=== PATIENT | female | born 1995 | race Caucasian/White ===

== ENCOUNTER 2024-02-24 06:39 | Inpatient (IN) | payer OTHER ==
[2024-02-24] VITALS (42 sets, daily range): BP systolic 119–139; BP diastolic 57–80; PULSE 50–81; TEMP 98.1–98.8
[~2024-02-24] VITALS: Wt 81.4 kg
[~2024-02-24 06:39] MED LIST: LR & Oxytocin 500 ML IV SCH; LR 1,000 ML IV SCH; PRENATAL; TYLENOL 325MG325 MG PO; ceFAZolin 2 G in Water For Injection,Sterile 20 ML IV ONE
[2024-02-24 07:59] LABS: BASO % 0.3 % (0.0-2.0); EOS # 0.1 K/mm3 (0.0-0.7); EOS % 1.9 % (0.0-4.0); GRAN # 4.9 K/mm3 (1.4-6.5); GRAN % 72.6 % (42.2-75.2); HEMOGLOBIN 11.6 g/dl (12.5-16.0); LYMPH # 1.1 K/mm3 (1.2-3.4); LYMPH % 15.8 % (20.0-51.0); MEAN CELL VOLUME 90 fl (80.0-100.0); MEAN CORPUSCULAR HEMOGLOBIN 30 pg (27-31); MEAN CORPUSCULAR HGB CONC 34 g/dl (33.0-37.0); MEAN PLATELET VOLUME 10.8 fl (7.4-10.4); MONO # 0.6 K/mm3 (0.1-0.6); MONO % 8.7 % (1.7-9.3); PLATELET COUNT 160 K/mm3 (130-400); RED BLOOD COUNT 3.81 M/mm3 (4.10-5.30); REDCELL DISTRIBUTION WIDTH-CV 13.7 % (11.5-14.5)
[2024-02-24 08:06] LABS: HEMATOCRIT 34.2 % (37.0-47.0)
--- NOTE | 2024-02-24 08:28 | NUR ---
0700 PT AMBULATES ONTO THE UNIT WITH SPOUSE FOR SCHEDULED INDUCTION OF LABOR.PT DENIES LOF AND VB.PT REPORTS POSITIVE MOVEMENT AND IRREGULAR CONTRACTIONS. POC REVIEWED WITH PT.EFM AND TOCO APPLIED AND TRACING CATEGORY 1.CONSENTS REVIEWED AND SIGNED BY PT.PT AND SPOUSE VERBALIZE UNDERSTANDING.
[2024-02-24] MEDS ORDERED: diphenhydrAMINE 50 MG/ML 1 ML VIAL IV PRN (09:00)
[2024-02-24] MEDS ORDERED: Ondansetron 4 MG/2 ML VIAL IV PRN (09:00)
[2024-02-24] MEDS ORDERED: diphenhydrAMINE 25 MG CAP PO PRN (09:00)
[2024-02-24] MEDS ORDERED: ePHEDrine 50 MG/10 ML VIAL IV PRN (09:00)
[2024-02-24] MEDS ORDERED: Naloxone 0.4 MG/ML VIAL IV PRN ×2 (09:00→16:30)
--- NOTE | 2024-02-24 09:32 | NUR ---
AT THIS TIME BIRTHING PLAN SUPPLIED BY PT REVIEWED BY THIS RN AT BEDSIDE.
--- NOTE | 2024-02-24 12:53 | NUR ---
DR BHATTI AT BEDSIDE.SVE /3. 6 AROM PERFORMED WITH CLEAR FLUID RETURN.PT TOLERATED PROCEDURE WELL.
[2024-02-24] MEDS ORDERED: ceFAZolin 1 G in Water For Injection,Sterile 10 ML IV SCH (14:15)
--- NOTE | 2024-02-24 14:17 | NUR ---
1355 VARIABLES NOTED ON STRIP INTO THE 90'S.THIS RN BEDSIDE FOR SVE.PT REFUSES AT THIS TIME.
[2024-02-24] MEDS ORDERED: Magnes Hydrox (MOM) 80 MG/ML 30 ML CUP PO PRN (16:30)
[2024-02-24] MEDS ORDERED: Mag/Al Hydrox/Simeth Susp 30 ML CUP PO PRN (16:30)
[2024-02-24] MEDS ORDERED: Loratadine 10 MG TAB PO PRN (16:30)
[2024-02-24] MEDS ORDERED: Measles/Mumps/Rubella Virus Vaccine Live w Diluent 0.5 ML VIAL SQ SCH (16:30)
[2024-02-24] MEDS ORDERED: Acetaminophen 500 MG TAB PO SCH (16:30)
[2024-02-24] MEDS ORDERED: Ibuprofen 600 MG TAB PO SCH (16:30)
[2024-02-24] MEDS ORDERED: Phenylephrine/Mineral Oil/Petrolatum 57 GM TUBE RC PRN (16:30)
[2024-02-24] MEDS ORDERED: oxyCODONE 5 MG TAB PO PRN (16:30)
[2024-02-24] MEDS ORDERED: Witch Hazel 50% Pads Bulk TUB TP PRN (16:30)
[2024-02-24] MEDS ORDERED: Sennosides/Docusate 8.6-50 MG TAB PO SCH (17:00)
--- NOTE | 2024-02-24 18:27 | NUR ---
1530 THIS RN AT BEDSIDE.SVE /-2.PT STATES THAT ONCE SHE REACHES THIS POINT SHE GOES FAST.DR BHATTI NOTIFIED. 1545 THIS RN,CHARGE NURSE, NURSERY AT BEDSIDE FOR IMPENDING DELIVERY 1600 DR BHATTI AT BEDSIDE. 1609 OF VIABLE MALE INFANT.STRONG CRY NOTED AT DELIVERY.DR BHATTI DELAYED CORD CLAMPING UNTIL CORD PULSELESS AND WHITE.CORD CLAMPED AND CUT BY FATHER OF THE BABY. PLACED ON MATERANL ABDOMEN.INFANT STIMULATED AND BULB SUCTIONED. CARES ASSUMED BY TORI POON RN. 1611 OF INTACT PLACENTA.PITOCIN BOLUS INFUSING PER PROTOCOL. NO REPAIR INDICATED BY DR BHATTI.FUNDUS FIRM AT THE UMBILICUS.LOCHIA WITHIN NORMAL LIMITS.ICE PACK PLACED ON THE PERINEUM AT THIS TIME.
[2024-02-24] MEDS ORDERED: traZODone 50 MG TAB PO PRN (21:00)
[2024-02-25 00:15] VITALS: BP 118/68; PULSE 70; TEMP 97.9
[2024-02-25 07:34] VITALS: BP 121/67; PULSE 56; TEMP 97.9
[2024-02-25] MEDS ORDERED: Prenatal Vitamins/Iron/FA TAB PO SCH (09:00)
[2024-02-25 16:30] VITALS: BP 119/61; PULSE 55; TEMP 97.8
--- NOTE | 2024-02-25 19:00 | NUR ---
PT DISCHARGE INFORMATION REVIEWED WITH PT. QUESTIONS ENCOURAGED AND ANSWERED. PAPAERWORK SIGNED AND UNDERSTANDING IS VOICED. PT IS PACKING UP AND PREPARING TO GO HOME
== END 2024-02-25 19:45 | disposition home or self-care (01) | DRG 807 ==
LOC: OB → LDR 06:39 → OB 11:13
PROVIDERS: ADMIT Obstetrics & Gynecology
PROC: 10E0XZZ Delivery of Products of Conception, External Approach (ICD-10-PCS; principal; 2024-02-24)
PROC: 10907ZC Drainage of Amniotic Fluid, Therapeutic from Products of Conception, Via Natural or Artificial Opening (ICD-10-PCS; 2024-02-24)
PROC: 3E033VJ Introduction of Other Hormone into Peripheral Vein, Percutaneous Approach (ICD-10-PCS; 2024-02-24)
DX: O99.824 Streptococcus B carrier state complicating childbirth (principal); Z37.0 Single live birth; O99.344 Other mental disorders complicating childbirth; F41.9 Anxiety disorder, unspecified; M06.9 Rheumatoid arthritis, unspecified; O99.892 Other specified diseases and conditions complicating childbirth; O36.5930 Maternal care for other known or suspected poor fetal growth, third trimester, not applicable or unspecified; F32.A Depression, unspecified; Z3A.38 38 weeks gestation of pregnancy; Z86.16 Personal history of COVID-19; Z88.0 Allergy status to penicillin
CPT/HCPCS: J0690; J2590; J7120